=== PATIENT | female | born 1945 | race Caucasian/White ===

== ENCOUNTER 2017-03-11 13:09 | Emergency (ER) | payer BC ==
[~2017-03-11] VITALS: Ht 160 cm; Wt 89.0 kg
[~2017-03-11 13:09] MED LIST: HYDR-906 PO; NAPR-260 PO
[2017-03-11 13:16] VITALS: Ht 160 cm; Wt 89.0 kg
[2017-03-11] MEDS ORDERED: PRED20TA PO (13:41)
[2017-03-11] MEDS ORDERED: CETI10CA PO (13:41)
[2017-03-11] MEDS ORDERED: HC30CR25 TOP (13:41)
--- NOTE | 2017-03-11 13:47 | ERD ---
ER Documentation Chief Complaint Date/Time DATE: 03/11/17 TIME: 13:45 Chief Complaint RASH AND ITCHING TODAY HPI 8-year-old female complains of several week history of itchy rash on her chest and neck. In Claritin with some relief of itching. She denies any known allergens or exposures. She denies any significant rash on her extremities no fevers, vomiting, shortness of the chest pain ROS All systems reviewed and are negative except as per history of present illness. Medications Home Meds Active Scripts Cetirizine Hcl* (Zyrtec*) 10 Mg Capsule, 10 MG PO DAILY, #30 TAB.CHEW Prov:SHELBY PEREIRA MD 03/11/17 Prednisone* (Prednisone*) 20 Mg Tab, 40 MG PO DAILY for 5 Days, TAB Prov:SHELBY PEREIRA MD 03/11/17 Hydrocortisone* Topical (Hydrocortisone* Topical) 2.5%-28.3 Gm Cream..g., 1 APPLIC TOP BID for 10 Days, #1 TUB Prov:SHELBY PEREIRA MD 03/11/17 Hydrocodone/Acetaminophen ([place] 5-325 Tablet) 1 Each Tablet, 1 EACH PO Q6, #20 TAB Prov:PATRICK TAFOYA 06/01/16 Naproxen* (Naprosyn*) 500 Mg Tablet, 500 MG PO BID Y for PAIN AND/OR INFLAMMATION, #30 TAB Prov:PATRICK TAFOYA 06/01/16 Allergies Allergies: Coded Allergies: No Known Allergy (Unverified , 06/01/16) PMhx/Soc Hx Alcohol Use: No Hx Substance Use: No Hx Tobacco Use: No Physical Exam Vitals Vital Signs Date Time Temp Pulse Resp B/P Pulse Ox O2 Delivery O2 Flow Rate FiO2 03/11/17 13:16 98.1 78 20 135/74 99 Physical Exam Const: [] Alert, [id number] per Head: Atraumatic Eyes: Normal Conjunctiva ENT: Normal External Ears, Nose and Mouth. Neck: Full range of motion..~ No meningismus. Resp: Clear to auscultation bilaterally Cardio: Regular rate and rhythm, no murmurs Abd: Soft, non tender, non distended. Normal bowel sounds Skin: No petechiae or purpura. Patient is excoriated rash with LICHENIFICATION on the neck and anterior chest. There is no warmth, induration or streaking. Back: No midline or flank tenderness Ext: No cyanosis, or edema Neur: Awake and alert Psych: Normal Mood and Affect Procedures/MDM Patient presents with an eczema type rash on her chest and neck. No evidence of cellulitis, anaphylaxis, life-threatening rashes appropriate. She will treated short course of prednisone, hydrocortisone and Zyrtec. The patient was stable with no new complaints during the ER course. Clinically, there is no current evidence to suggest meningitis, sepsis, acute abdomen, pneumonia, acute coronary syndrome, pulmonary embolism, or any other emergent condition appearing to require further evaluation or hospitalization. The patient should certainly return for any new or worsening symptoms per the aftercare instructions. They should otherwise follow-up with her primary care doctor for reevaluation this week. Departure Diagnosis: Primary Impression: Rash Condition: Stable Patient Instructions: Dermatitis, Non-Specific Additional Instructions: Cheque otro vez con capellan doctor primario en el proximo andre or regresa para mas o nueva simptomas. SHELBY PEREIRA MD Mar 11, 2017 13:46
== END 2017-03-11 14:10 | disposition home or self-care (01) ==
LOC: FTE 13:09
DX: R21 Rash and other nonspecific skin eruption (principal)
CPT/HCPCS: 99283

== ENCOUNTER 2017-04-24 05:22 | Day surgery (SDC) | payer BC ==
[~2017-04-24] VITALS: Ht 144.8 cm; Wt 68.5 kg
[~2017-04-24 05:22] MED LIST changes: +CETI10CA PO; +HC30CR25 TOP; +PRED20TA PO
[2017-04-24 06:41] VITALS: Ht 144.8 cm; Wt 68.5 kg
[2017-04-24 07:25] VITALS: BP 155/72; PULSE 56; RESP 18
[2017-04-24] MEDS ORDERED: FENTAnyl 50 MCG/ML VIAL ONE (07:57)
[2017-04-24] MEDS ORDERED: MIDAZOLAM 1 MG/ML 2 ML INJ ONE (07:57)
[2017-04-24 08:21] VITALS: BP 128/82; PULSE 56; RESP 12
--- NOTE | 2017-04-25 04:07 | GILP ---
DATE OF PROCEDURE: 04/24/2017 : PROCEDURE PERFORMED: Colonoscopy and biopsy. SURGEON: Ifeanyi Poon MD PREOPERATIVE DIAGNOSIS: Screening colonoscopy. POSTOPERATIVE DIAGNOSES: 1. Colonoscopy all the way to the cecum. 2. 2 Small polyps, 1 from the transverse colon and another one in the sigmoid were removed using the biopsy forceps. 3. Diverticulosis of the colon. 4. Internal hemorrhoids. INDICATION: Ms. Macey Altamirano is a 71-year-old female patient who was scheduled for screening colonoscopy. The procedure and possible complications were well explained to the patient. She understood and consented to the procedure. DESCRIPTION OF PROCEDURE: Under the influence of fentanyl and Versed, the colonoscope was carefully introduced in the rectum. Under direct vision, it was advanced all the way to the cecum. FINDINGS: The patient had 2 small colon polyps, one in the transverse colon and another one in the sigmoid and they were removed using the biopsy forceps. The patient was noted to have diverticulosis of the colon and internal hemorrhoids. She tolerated the procedure very well. There was no complications from the procedure. At the end of procedure she was awake with stable vital signs and she was discharged home in the care of her family. IMPRESSION: Please see postop diagnoses. PLAN: Next screening colonoscopy in 10 years. Dictated By: MD BRADLY Webber/jarad/vicente /Document#: [id number]
== END 2017-04-24 13:54 | disposition home or self-care (01) ==
LOC: GIL 05:22
PROVIDERS: ATTEND Internal Medicine Gastroenterology
DX: Z12.11 Encounter for screening for malignant neoplasm of colon (principal); D12.3 Benign neoplasm of transverse colon; K57.90 Diverticulosis of intestine, part unspecified, without perforation or abscess without bleeding; K64.8 Other hemorrhoids
CPT/HCPCS: 45380; J2250; J3010; Z7610; 88305

== ENCOUNTER 2017-06-04 19:04 | Emergency (ER) | payer BC ==
[~2017-06-04] VITALS: Ht 160 cm; Wt 79.6 kg
[~2017-06-04 19:04] MED LIST changes: -CETI10CA PO; -HC30CR25 TOP; -HYDR-906 PO; -PRED20TA PO
[2017-06-04 19:17] VITALS: Ht 160 cm; Wt 79.6 kg
[2017-06-04] MEDS ORDERED: LIDOCAINE 1%/EPI 30 ML INJ INJ STA (21:41)
[2017-06-04] MEDS ORDERED: CEPH-443 PO (21:46)
[2017-06-04] MEDS ORDERED: SULF1TAB31 PO (21:46)
[2017-06-04] MEDS ORDERED: LIDOCAINE 2%/EPI MPF (SDV) 20 ML VIAL INJ ONE (22:00)
[2017-06-04 22:46] VITALS: BP 155/70; PULSE 54; RESP 18; TEMP 97.5
--- NOTE | 2017-06-04 23:00 | ERD ---
ER Documentation Chief Complaint Date/Time DATE: 06/04/17 TIME: 22:54 Chief Complaint bib self, left forearm splinter HPI 71-year-old female presents to the emergency department brought in by self for a wooden splinter in her left forearm last couple hours. Patient states that she got most of it out but she has a little pain stuck into her left forearm. She states the pain is minimal. Patient states that she is up-to-date on her tetanus shot. ROS All systems reviewed and are negative except as per history of present illness. Medications Home Meds Active Scripts Cephalexin* (Keflex*) 500 Mg Capsule, 500 MG PO QID for 7 Days, CAP Prov:KARELY GARCIA PA-C 06/04/17 Naproxen* (Naprosyn*) 500 Mg Tablet, 500 MG PO BID Y for PAIN AND/OR INFLAMMATION, #30 TAB Prov:PATRICK TAFOYA 06/01/16 Allergies Allergies: Coded Allergies: No Known Allergy (Unverified , 06/01/16) PMhx/Soc History of Surgery: Yes (STERILIZATION; LEFT BREAST TUMOR) Anesthesia Reaction: No Hx Neurological Disorder: No Hx Respiratory Disorders: No Hx Cardiac Disorders: No Hx Psychiatric Problems: No Hx Miscellaneous Medical Probl: Yes (ARTHRITIS; STOMACH ISSUES) Hx Alcohol Use: Yes (SOCIAL ) Hx Substance Use: No Hx Tobacco Use: No Smoking Status: Never smoker Physical Exam Vitals Vital Signs Date Time Temp Pulse Resp B/P Pulse Ox O2 Delivery O2 Flow Rate FiO2 06/04/17 22:46 97.5 54 18 155/70 96 Room Air 06/04/17 19:17 98.3 88 18 141/81 100 Physical Exam Const: Well-developed well-nourished Head: Atraumatic Eyes: Normal Conjunctiva ENT: Normal External Ears, Nose and Mouth. Neck: Full range of motion..~ No meningismus. Resp: Clear to auscultation bilaterally Cardio: Regular rate and rhythm, no murmurs Abd: Soft, non tender, non distended. Normal bowel sounds Skin: Linear abrasion on left forearm Back: No midline or flank tenderness Ext: No cyanosis, or edema Neur: Awake and alert Psych: Normal Mood and Affect Results 24 hrs Current Medications Medications (Trade) Dose Ordered Sig/Tal Route PRN Reason Start Time Stop Time Status Last Admin Dose Admin Lidocaine/ Epinephrine (Xylocaine 1%/ Epi (Pf)) 30 ml ONCE STAT INJ 06/04/17 21:41 06/04/17 21:42 DC Lidocaine/ Epinephrine (Xylocaine 2%/ Epi Mpf(Sdv)) 20 ml ONCE ONCE INJ 06/04/17 22:00 06/04/17 22:01 DC Procedures/MDM 71-year-old female presents the emergency department with a wooden splinter in her left forearm. In the ED procedure was done, listed below, and wooden splinter was removed. Patient is up-to-date on tetanus. She was given prescription for Keflex for prophylaxis. First dose was given in the ED. Patient's neurovascular intact to be discharged home with precautions to return to the emergency department for any worsening signs or symptoms. She understands and agrees this plan Verbal consent was obtained, approximately 5 cc of lidocaine with epinephrine was used as a local anesthetic. Using forceps and a 11 blade, I was able to remove the wooden splinter. Bacitracin was applied. Dressing was applied. Procedure was tolerated without any complications Departure Diagnosis: Primary Impression: Splinter Condition: Stable Patient Instructions: Splinter Removal Additional Instructions: Visite a capellan jesse escobar para un EXAMEN.Regrese a estas instalaciones si no se mejora zach esperbamos o zach le dijimos. Aplin toda la medicina kristina y zach se le indic. Regrese a estas instalaciones si no se mejora zach esperbamos o zach le dijimos. KARELY GARCIA PA-C Jun 04, 2017 23:00
== END 2017-06-04 22:46 | disposition home or self-care (01) ==
LOC: FTE 19:04
DX: S50.852A Superficial foreign body of left forearm, initial encounter (principal); W45.8XXA Other foreign body or object entering through skin, initial encounter; Y92.9 Unspecified place or not applicable
CPT/HCPCS: 10120; Z7502; Z7610

== ENCOUNTER 2019-03-09 11:42 | Emergency (ER) | payer BC ==
[~2019-03-09] VITALS: Ht 147.3 cm; Wt 67.0 kg
[~2019-03-09 11:42] MED LIST changes: +CEPH-443 PO; -NAPR-260 PO; +NAPR-985 PO
[2019-03-09 11:43] VITALS: Ht 147.3 cm; Wt 67.0 kg
[2019-03-09] MEDS ORDERED: KETOROLAC 60 MG INJ IM STA (12:17)
[2019-03-09] MEDS ORDERED: TRAM50TA2 PO (12:21)
[2019-03-09] MEDS ORDERED: NAPR-985 PO (12:21)
[2019-03-09] MEDS ORDERED: CYCL10TA7 PO (12:21)
[2019-03-09] MEDS ORDERED: MED4DP PO (12:21)
[2019-03-09] MEDS ORDERED: DEXAMETHASONE 10 MG/ML 1 ML INJ IM ONE (12:30)
[2019-03-09 12:50] VITALS: BP 154/71; PULSE 64; RESP 18
--- NOTE | 2019-03-09 12:51 | ERD ---
ER Documentation Chief Complaint Chief Complaint BACK PAIN X 2 MOS HPI 73-year-old female presenting with back pain for the last 2 months. Patient states the pain is constant. She takes naproxen and ibuprofen which alleviates her symptoms however it returns. She denies any recent traumatic falls or injuries. Denies any numbness or tingling down her legs and denies any urinary retention or saddle anesthesia. Patient does not have incontinence. Patient denies any fevers. Denies other medical problems. NKDA. Surgical history denies. Social history denies ROS All systems reviewed and are negative except as per history of present illness. Medications Home Meds Active Scripts Cyclobenzaprine Hcl* (Cyclobenzaprine Hcl*) 10 Mg Tablet, 10 MG PO TID, #15 TAB Prov:ADELINE STERN PA-C 03/09/19 Naproxen* (Naprosyn*) 500 Mg Tablet, 500 MG PO BID PRN for PAIN AND/OR INFLAMMATION, #30 TAB Prov:ADELINE STERN PA-C 03/09/19 Tramadol HCl (Tramadol HCl) 50 Mg Tablet, 50 MG PO Q4 PRN for PAIN, #20 TAB Prov:ADELINE STERN PA-C 03/09/19 Methylprednisolone* (Medrol* DOSE PACK) 4 Mg/Dose-Pack Tab.ds.pk, 4 MG PO . DIRECTED, #1 PACKET Prov:ADELINE STERN PA-C 03/09/19 Cephalexin* (Keflex*) 500 Mg Capsule, 500 MG PO QID for 7 Days, CAP Prov:KARELY GARCIA PA-C 06/04/17 Naproxen* (Naprosyn*) 500 Mg Tablet, 500 MG PO BID PRN for PAIN AND/OR INFLAMMATION, #30 TAB Prov:PATRICK TAFOYA MD 06/01/16 Allergies Allergies: Coded Allergies: No Known Allergy (Unverified , 03/09/19) PMhx/Soc History of Surgery: Yes (STERILIZATION; LEFT BREAST TUMOR) Anesthesia Reaction: No Hx Neurological Disorder: No Hx Respiratory Disorders: No Hx Cardiac Disorders: No Hx Psychiatric Problems: No Hx Miscellaneous Medical Probl: Yes (ARTHRITIS; STOMACH ISSUES) Hx Alcohol Use: Yes (SOCIAL ) Hx Substance Use: No Hx Tobacco Use: No FmHx Family History: No diabetes, No coronary disease, No other Physical Exam Vitals Vital Signs Date Temp Pulse Resp B/P (MAP) Pulse Ox O2 O2 Flow FiO2 Time Delivery Rate 03/09/19 98.1 69 18 160/78 99 11:43 (105) Physical Exam GENERAL: The patient is well-appearing, well-nourished, in no acute distress CHEST: Clear to auscultation bilaterally. There are no rales, wheezes or rhonchi. HEART: Regular rate and rhythm. No murmurs, clicks, rubs or gallops. BACK: No midline or flank tenderness. Tender to palpation over paraspinous muscles and lumbar region. EXTREMITIES: Equal pulses bilaterally. There is no peripheral clubbing, cyanosis or edema. No focal swelling or erythema. Full range of motion. Grossly neurovascularly intact. NEUROLOGIC: Alert and oriented. Cranial nerves II through XII intact. Motor strength in all 4 extremities with 5 out of 5 strength. Sensation grossly intact. Normal speech and gait. Babinski negative. DTR 2+ throughout. SKIN: There is no apparent rash or petechiae. The skin is warm and dry. Results 24 hrs Laboratory Tests Test 03/09/19 12:40 Bedside Urine pH (LAB) 7.0 Bedside Urine Protein (LAB) Negative Bedside Urine Glucose (UA) Negative Bedside Urine Ketones (LAB) Negative Bedside Urine Blood Trace-lysed Bedside Urine Nitrite (LAB) Negative Bedside Urine Leukocyte Esterase (L 1+ Current Medications Medications Dose Sig/Tal Start Time Status Last (Trade) Ordered Route PRN Stop Time Admin Dose Reason Admin Ketorolac 60 mg ONCE STAT 03/09/19 DC 03/09/19 Tromethamine IM 12:17 12:25 (Toradol) 03/09/19 12:18 10 mg ONCE ONCE 03/09/19 DC 03/09/19 Dexamethasone IM 12:30 12:26 (Decadron) 03/09/19 12:31 Procedures/MDM Course: Decadron and Toradol given in ED. MDM: 73-year-old female presents with back pain. Patient's pain is likely is musculoskeletal spasm. I have low suspicion for cauda equina, I have low suspicion for discitis or epidural abscess. I have low suspicion for acute fracture dislocation. Patient's exam is concerning she does not have any acute traumatic injury. Patient is discharged with strict ER precautions. All questions answered at discharge Departure Diagnosis: Primary Impression: Back pain Condition: Stable Patient Instructions: Back Pain W/ Sciatica Referrals: ISRAEL MNEDENHALL (PCP) Additional Instructions: FOLLOW UP WITH YOUR PRIMARY CARE PHYSICIAN TOMORROW.Return to this facility if you are not improving as expected. ADELINE STERN PA-C Mar 09, 2019 12:51
== END 2019-03-09 12:50 | disposition home or self-care (01) ==
LOC: FTE 11:42
DX: M54.5 Low back pain (principal)
CPT/HCPCS: 81003; 96372; J1100; J1885; Z7502